=== PATIENT | male | born 1955 | race Hispanic/Latino ===

== ENCOUNTER 2019-03-28 10:17 | Emergency (ER) | payer OTHER ==
[2019-03-28 11:44] LABS: Absolute Lymphocytes (CBC) 1.2 K/uL (0.7-4.9); Basophils % 0.2 % (0-1.3); Hematocrit 34.2 % (39.6-49.0); Lymphocytes % 8.8 % (15.3-44.8); MPV 9.9 fL (7.6-11.3); RBC Red Blood Cell Count 3.77 M/uL (4.33-5.43)
--- NOTE | 2019-03-28 11:44 | RAD REPORT ---
EXAM DESCRIPTION: RAD - Chest Single View - 03/28/2019 11:29 am CLINICAL HISTORY: CHEST PAIN Chest pain. COMPARISON: Chest Pa And Lat (2 Views) dated 03/14/2019 FINDINGS: Portable technique limits examination quality. The lungs are grossly clear. The heart is upper limit of normal in size. No displaced fractures. IMPRESSION: No acute intrathoracic process suspected.
[2019-03-28 12:02] LABS: ALT/SGPT 21 U/L (12-78); AST/SGOT 20 U/L (15-37); Albumin 4.4 g/dL (3.4-5.0); Alkaline Phosphatase 72 U/L (45-117); BUN Blood Urea Nitrogen 22 mg/dL (7-18); Bicarbonate 22 mmol/L (21-32); Bilirubin Direct 0.2 mg/dL (0-0.2); Bilirubin Total 0.4 mg/dL (0.2-1.0); Glucose Level 84 mg/dL (74-106); Lipase 213 U/L (73-393); NT PRO-BNP 26 pg/mL (<125); Potassium 3.4 mmol/L (3.5-5.1); Protein, Total 7.9 g/dL (6.4-8.2); Sodium Level 148 mmol/L (136-145); Troponin (Emerg Dept Use Only) < 0.02 ng/mL (0.0-0.045)
--- NOTE | 2019-03-28 12:18 | ER ---
Nurse's Notes [facility] Name: Chuy Sanchez Age: 63 yrs Sex: Male : 1955 Arrival Date: 03/28/2019 Time: 10:19 Bed 14 Private MD: Diagnosis: Chest pain, unspecified Presentation: 03/28 10:19 Presenting complaint: EMS states: ROLLING AROUND ON THE FLOOR IN [employer] CUSTODY, C/O bp EPIGASTRIC PAIN. Transition of care: patient was not received from another setting of care. Onset of symptoms is unknown. Risk Assessment: Do you want to hurt yourself or someone else? Patient reports no desire to harm self or others. Initial Sepsis Screen: Does the patient meet any 2 criteria? No. Patient's initial sepsis screen is negative. Does the patient have a suspected source of infection? No. Patient's initial sepsis screen is negative. Care prior to arrival: Glucose check: 74. 10:19 Method Of Arrival: EMS: [facility] bp 10:19 Acuity: OMAR 3 bp Triage Assessment: 10:21 General: Appears in no apparent distress. uncomfortable, Behavior is appropriate for bp age, agitated, anxious, uncooperative. Pain: Complains of pain in diaphragm. EENT: No deficits noted. Neuro: No deficits noted. Cardiovascular: No deficits noted. Respiratory: No deficits noted. GI: Reports epigastric pain. : No signs and/or symptoms were reported regarding the genitourinary system. Derm: No deficits noted. Musculoskeletal: No deficits noted. Historical: - Allergies: 10:21 No Known Allergies; bp - Home Meds: 10:21 Unable to obtain [Active]; bp - PMHx: 10:21 Unable to obtain; bp - Immunization history:: Adult Immunizations up to date. - Social history:: Smoking status: unknown. - Ebola Screening: : No symptoms or risks identified at this time. - Family history:: not pertinent. - Hospitalizations: : No recent hospitalization is reported. Screenin:23 Abuse screen: Denies threats or abuse. Denies injuries from another. Nutritional bp screening: No deficits noted. Tuberculosis screening: No symptoms or risk factors identified. Fall Risk None identified. Assessment: 10:23 General: PT NOT COOPERATING WITH ASSESSMENT OR STAYING IN BED. bp 11:19 Reassessment: PT CARE COMPLICATED BY PT FREQUENT ABSENCE FROM ROOM. PT REDIRECTED TO bp BED FOR HEALTH CARE ACTIVITIES. 11:54 Reassessment: Patient appears in no apparent distress at this time. Patient and/or iw family updated on plan of care and expected duration. Pain level reassessed. Patient is alert, oriented x 3, equal unlabored respirations, skin warm/dry/pink. pt asking how much longer he will be here, updated on POC, pt lying in bed, watching TV, asked me to change station for him, NAD. Vital Signs: 10:21 BP 118 / 74; Pulse 102; Resp 18; Temp 98; Pulse Ox 99% ; Weight 58.97 kg; bp 12:27 BP 124 / 74; Pulse 89; Resp 16; Pulse Ox 100% on R/A; Pain 0/10; iw 10:21 EMS VITALS bp ED Course: 10:19 Patient arrived in ED. 10:19 Frandy Gutierrez, RN is Primary Nurse. bp 10:21 Triage completed. bp 10:21 Arm band placed on. bp 10:23 Patient has correct armband on for positive identification. Bed in low position. Call bp light in reach. Side rails up X2. 10:30 Kennedy Brandon MD is Attending Physician. rn 11:31 XRAY Chest (1 view) In Process Unspecified. EDMS 12:26 No provider procedures requiring assistance completed. Patient did not have IV access iw during this emergency room visit. Administered Medications: No medications were administered Outcome: 12:18 Discharge ordered by . rn 12:26 Discharged to home ambulatory. iw 12:26 Condition: good 12:26 Discharge instructions given to patient, Instructed on discharge instructions, follow up and referral plans. Demonstrated understanding of instructions, follow-up care. 12:27 Patient left the ED. iw Signatures: Dispatcher [employer] EDMS Ann Griffith RN RN Kennedy Brandon MD MD rn Joaquin, Henry, RN RN Frandy Gutierrez, ITA RN bp
--- NOTE | 2019-03-28 12:19 | EDPHYS ---
Physician Documentation [facility] Name: Chuy Sanchez Age: 63 yrs Sex: Male : 1955 Arrival Date: 03/28/2019 Time: 10:19 Bed 14 Private MD: ED Physician Kennedy Brandon HPI: 03/28 11:15 This 63 yrs old Male presents to ER via EMS with complaints of Chest Pain. rn 11:15 The patient or guardian reports chest pain that is located primarily in the subxiphoid. rn Onset: 4 day(s) ago. The pain does not radiate. Associated signs and symptoms: The patient has no apparent associated signs or symptoms, Pertinent negatives: abdominal pain, cough, diaphoresis, dizziness, headache, lower extremity pain, lower extremity swelling, lightheadedness, nausea, near syncope, palpitations, recent travel, shortness of breath, syncope, vomiting. The chest pain is described as dull. Modifying factors: The symptoms are alleviated by nothing. the symptoms are aggravated by nothing. Severity of pain: At its worst the pain was mild in the emergency department the pain is unchanged. The patient has not experienced similar symptoms in the past. Reports chest hurts, points to xiphoid process, reports intermittent cor a few days, no trauma, no fever/cough/sob/abd pain/nausea/vomiting. Reports was drinking 2 beers last night, picked up by police, taken to snf, then began to complain of chest pain. . Historical: - Allergies: 10:21 No Known Allergies; bp - Home Meds: 10:21 Unable to obtain [Active]; bp - PMHx: 10:21 Unable to obtain; bp - Immunization history:: Adult Immunizations up to date. - Social history:: Smoking status: unknown. - Ebola Screening: : No symptoms or risks identified at this time. - Family history:: not pertinent. - Hospitalizations: : No recent hospitalization is reported. ROS: 11:15 Constitutional: Negative for fever, chills, and weight loss, Eyes: Negative for injury, rn pain, redness, and discharge, Neck: Negative for injury, pain, and swelling, Cardiovascular: Negative for palpitations, and edema, Respiratory: Negative for shortness of breath, cough, wheezing, and pleuritic chest pain, Abdomen/GI: Negative for abdominal pain, nausea, vomiting, diarrhea, and constipation, MS/Extremity: Negative for injury and deformity, Skin: Negative for injury, rash, and discoloration, Neuro: Negative for headache, weakness, numbness, tingling, and seizure. Exam: 11:15 Constitutional: This is a well developed, well nourished patient who is awake, alert, rn and in no acute distress. Laying in bed. Head/Face: Normocephalic, atraumatic. Eyes: Periorbital areas with no swelling, redness, or edema. ENT: MMM Cardiovascular: Regular rate and rhythm. No pulse deficits. Respiratory: Lungs have equal breath sounds bilaterally, clear to auscultation. No increased work of breathing, no retractions or nasal flaring. Abdomen/GI: soft, non-tender Back: No spinal tenderness. No costovertebral tenderness. Full range of motion. MS/ Extremity: Pulses equal, no cyanosis. Neurovascular intact. Full, normal range of motion. Equal circumference. Neuro: Awake and alert, GCS 15, oriented to person, place, time, and situation. Cranial nerves II-XII grossly intact. Motor strength 5/5 in all extremities. Sensory grossly intact. Cerebellar exam normal. Normal gait. 11:45 ECG was reviewed by the Attending Physician. rn Vital Signs: 10:21 BP 118 / 74; Pulse 102; Resp 18; Temp 98; Pulse Ox 99% ; Weight 58.97 kg; bp 12:27 BP 124 / 74; Pulse 89; Resp 16; Pulse Ox 100% on R/A; Pain 0/10; iw 10:21 EMS VITALS bp MDM: 10:30 Patient medically screened. rn 12:16 Differential diagnosis: acute pericarditis, anxiety, chest wall pain, costochondritis, rn esophagitis, gastritis, gastroesophageal reflux disease (GERD), pleurisy, pneumothorax. 12:16 Data reviewed: vital signs, nurses notes, lab test result(s), EKG, radiologic studies, rn plain films, and as a result, I will discharge patient. Counseling: I had a detailed discussion with the patient and/or guardian regarding: the historical points, exam findings, and any diagnostic results supporting the discharge/admit diagnosis, lab results, radiology results, the need for outpatient follow up, to return to the emergency department if symptoms worsen or persist or if there are any questions or concerns that arise at home. Special discussion: Based on the patient's history, exam, and Dx evaluation, there is no indication for emergent intervention or inpatient Tx. It is understood by the patient/guardian that if the Sx's persist or worsen they need to return immediately for re-evaluation. I discussed with the patient/guardian in detail that at this point there is no indication for admission to the hospital. It is understood, however, that if the symptoms persist or worsen the patient needs to return immediately for re-evaluation. ED course: Pt demanding to be discharged, keeps walking up to desk and asks to leave, states pain resolved, feels much better. Told him xray and labs look ok, ecg without ischemia, will dc home.. 03/28 10:55 Order name: Basic Metabolic Panel; Complete Time: 12:15 rn 03/28 10:55 Order name: CBC with Diff; Complete Time: 12:15 rn 03/28 10:55 Order name: LFT's; Complete Time: 12:15 rn 03/28 10:55 Order name: NT PRO-BNP; Complete Time: 12:15 rn 03/28 10:55 Order name: Troponin (emerg Dept Use Only); Complete Time: 12:15 rn 03/28 10:55 Order name: Lipase; Complete Time: 12:15 rn 03/28 10:55 Order name: XRAY Chest (1 view); Complete Time: 11:47 rn 03/28 10:55 Order name: EKG; Complete Time: 10:57 03/28 10:55 Order name: Cardiac monitoring; Complete Time: 11:03/28 10:55 Order name: EKG - Nurse/Tech; Complete Time: 11:03/28 10:55 Order name: IV [place]; Complete Time: 11:28 03/28 10:55 Order name: Labs collected and sent; Complete Time: 11:03/28 10:55 Order name: O2 Per Protocol; Complete Time: :03/28 10:55 Order name: O2 Sat Monitoring; Complete Time: 11:20 rn EC:45 Rate is 82 beats/min. Rhythm is regular. QRS [place] is Normal. [place] interval is normal. QRS rn interval is normal. QT interval is normal. No Q waves. T waves are Normal. No ST changes noted. Clinical impression: Normal ECG. Administered Medications: No medications were administered Disposition: 03/28/19 12:18 Discharged to Home. Impression: Chest pain, unspecified. - Condition is Stable. - Discharge Instructions: Nonspecific Chest Pain. - Medication Reconciliation Form, Thank You Letter, Antibiotic Education, Prescription Opioid Use form. - Follow up: Private Physician; When: As needed; Reason: Recheck today's complaints, Re-evaluation by your physician. - Problem is new. - Symptoms have improved. Signatures: Dispatcher [employer] EDAnn Romo RN RN iw Kennedy Brandon MD MD rn Peltier, Brian RN RN bp Corrections: (The following items were deleted from the chart) 12:27 12:18 03/28/2019 12:18 Discharged to Home. Impression: Chest pain, unspecified. iw Condition is Stable. Forms are Medication Reconciliation Form, Thank You Letter, Antibiotic Education, Prescription Opioid Use. Follow up: Private Physician; When: As needed; Reason: Recheck today's complaints, Re-evaluation by your physician. Problem is new. Symptoms have improved. rn
--- NOTE | 2019-03-28 12:47 | EKG ---
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
== END 2019-03-28 12:27 | disposition home or self-care (01) ==
LOC: ER 10:17
DX: R07.9 Chest pain, unspecified (principal)
CPT/HCPCS: 36415; 71045; 80048; 80076; 83690; 83880; 84484; 85025; 93005; 99283